=== PATIENT | male | born 1955 | race Caucasian/White ===

== ENCOUNTER → 2018-02-23 | Outpatient (CLI) | payer OTHER ==
--- NOTE | 2018-02-23 11:56 | EST ---
EXERCISE STRESS DATE OF SERVICE: 02/23/2018 AGE: 62 SEX: Male HT: 6'3" WT: 230 PROTOCOL: Erlin STAGE: V DURATION OF EXERCISE: 12-1/2 minutes HEART RATE REST: 57 BLOOD PRESSURE REST: 144/92 MAXIMUM HEART RATE ACHIEVED: 139 MAXIMUM BLOOD PRESSURE: 208/88 85% MPHR: 136 100% MPHR: 160 METS: 12.9 INDICATIONS: Shortness of breath CLINICAL INFORMATION: Baseline EKG revealed normal sinus rhythm without significant ST-T changes. Patient walked on standard Erlin protocol for 12-1/2 minutes achieved a maximal heart rate of 139 beats per minute which is slightly more than 85% of predicted maximal. He developed some fatigue and shortness of breath but did not have any angina. Rare isolated PVCs were noted. There was no evidence to suggest any ST-segment changes to indicate ischemia. By EKG criteria, this is a negative stress test with excellent exercise capacity. Rare PVCs were noted, which I do not think are significant. MMODL / IJN: [id number] /
== END | disposition home or self-care (01) ==
LOC: RADNMMAIN 10:29
PROVIDERS: ATTEND Family Medicine
DX: Z13.6 Encounter for screening for cardiovascular disorders (principal); Z82.49 Family history of ischemic heart disease and other diseases of the circulatory system
CPT/HCPCS: 93017

== ENCOUNTER → 2018-12-19 | Outpatient (CLI) | payer OTHER ==
--- NOTE | 2018-12-19 22:44 | MR ---
EXAMINATION TYPE: MR iac wo/w con DATE OF EXAM: 12/19/2018 COMPARISON: CT facial bones January 22, 2016 HISTORY: Lt sided hearing loss/ringing, dizziness TECHNIQUE: Multiplanar, multisequence images of the brain and brainstem is performed without and with IV contras t, utilizing 10 mL intravenous Gadavist . Acoustic nerve disorder protocol. FINDINGS: Diffusion weighted images demonstrate no evidence of a recent infarct or other diffusion ab normality. There is no worrisome extra-axial fluid collection. There is diffuse ventricular and sulc al prominence. There is occasional small focus of T2 hyperintensity scattered throughout the white ma tter bilaterally. Approximately 5 scattered lesions are seen. Midline structures demonstrate normal morphology. The craniocervical junction appears within normal limits. Normal vascular flow voids are present . The visualized sinuses are clear and the globes are intact. No suspicious fluid signal is seen in mastoid air cells bilaterally. The vestibulocochlear complexes are symmetric and felt within normal limits. There is no suspicious enhancing cerebellopontine angle mass identified bilaterally. IMPRESSION: 1. No suspicious findings seen to account for patient's symptoms of left-sided hearing loss and dizzi ness. 2. Background [id number] diffuse cerebral atrophy and mild to minimal chronic small vessel isch emic change is noted.
== END | disposition home or self-care (01) ==
LOC: RADMRIMAIN 16:36
PROVIDERS: ATTEND Otolaryngology
DX: I67.82 Cerebral ischemia (principal); G31.9 Degenerative disease of nervous system, unspecified
CPT/HCPCS: 70553; A9585

== ENCOUNTER → 2018-12-29 | Outpatient (CLI) | payer OTHER ==
[~2018-12-29] MED LIST: REGADENOSON 0.4 MG/5 ML SYRINGE IV ONE
--- NOTE | 2018-12-29 11:11 | NM ---
EXAMINATION TYPE: NM stress lexiscan cardiolite DATE OF EXAM: 12/29/2018 COMPARISON: NONE HISTORY: Chest pain TECHNIQUE: After the intravenous administration of 10.07 mCi Tc 99m Sestamibi - Cardiolite resting S PECT images acquired 45 minutes post injection. The patient received 0.4mg Lexiscan, 24.8 mCi Tc 99m Sestamibi - Stress images obtained [address] injection FINDINGS: Review of stress and rest SPECT images demonstrates no distinct perfusion abnormality. Gated analysi s shows normal wall motion with an estimated left ventricular ejection fraction of 59 %. IMPRESSION: No scintigraphic evidence for reversible ischemia.
--- NOTE | 2018-12-29 12:53 | EST ---
EXERCISE STRESS AGE: 63 SEX: M HT: 6'2" WT: 226 PROTOCOL: Lexiscan Cardiolite Stress Test HEART RATE REST: 49 BLOOD PRESSURE REST: 128/84 MAXIMUM HEART RATE ACHIEVED: 72 MAXIMUM BLOOD PRESSURE: 135/76 INDICATIONS: Abnormal EKG. CLINICAL INFORMATION: Lexiscan Cardiolite stress test for an abnormal ECG. Baseline heart rate 49 beats per minute. Baseline blood pressure 128/84 mmHg. Baseline 12-lead ECG shows sinus rhythm with a mildly prolonged VR interval with a narrow QRS with a consistent terminal sharp subtle deflection at the very end of the QRS in lead V1. PVCs noted at baseline as well as throughout the test. Frequent PVCs noted. These PVCs have left bundle branch block-like morphology with notching both in the onset, on the down slope as well as at the yusra of the QRS complex. There was no ECG evidence for ischemia noted, no nonsustained ventricular tachycardia noted. Nuclear portion will be reported separately. However, one should consider conditions of right ventricular cardiomyopathy given the morphology and notching on the PVCs which are originating from the outflow tract of the right ventricle as well as a very subtle sharp artifact at the end of the QRS in lead V1. MMODL / IJN: [id number] /
== END | disposition home or self-care (01) ==
LOC: RADNMMAIN 07:47
PROVIDERS: ATTEND Family Medicine
DX: R94.31 Abnormal electrocardiogram [ECG] [EKG] (principal)
CPT/HCPCS: 93017; 78452; A9500; J2785

== ENCOUNTER → 2018-12-29 | Outpatient (CLI) | payer OTHER | LOC: LABWHC1 11:04 | PROVIDERS: ATTEND Nurse Practitioner | DX: M79.609 Pain in unspecified limb (principal); R60.9 Edema, unspecified; Z86.718 Personal history of other venous thrombosis and embolism | CPT/HCPCS: 36415; 85379 ==

== ENCOUNTER 2019-09-17 08:36 | Day surgery (SDC) | payer OTHER ==
[2019-09-13 12:47] VITALS: BMI 28.8
[~2019-09-17 08:36] MED LIST changes: +LACTATED RINGERS 1,000 ML IV SCH; -REGADENOSON 0.4 MG/5 ML SYRINGE IV ONE
[2019-09-17 08:59] VITALS: RESP 16; TEMP 97.2
[2019-09-17] MEDS ORDERED: LIDOCAINE 1% (10MG/ML) FOR IV START INTRADERMA ONE (08:59)
[2019-09-17] MEDS ORDERED: GLYCOPYRROLATE 0.2 MG/ML 2 ML VIAL ONE (09:29)
[2019-09-17] MEDS ORDERED: MIDAZOLAM 2 MG/2 ML VIAL ONE (09:29)
[2019-09-17] MEDS ORDERED: fentaNYL (PF) 50 MCG/ML 2 ML AMP ONE (09:29)
[2019-09-17] MEDS ORDERED: PROPOFOL 10 MG/ML 20 ML VIAL IV ONE (09:29)
--- NOTE | 2019-09-17 09:58 | P.PCN ---
Date of Procedure: 09/17/19 Description of Procedure: BRIEF HISTORY: Patient is a 64-year-old male presenting for outpatient colonoscopy for screening for malignant neoplasm of the colon. Patient denies any change in bowel habits, blood per rectum or abdominal pain. No family history of colon cancer reported. He believes his last colonoscopy was approximately 15 years ago. PROCEDURE PERFORMED: Colonoscopy with polypectomy. PREOPERATIVE DIAGNOSIS: And screening for malignant neoplasm of the colon, patient was last colonoscopy was 15 years ago. ESTIMATED BLOOD LOSS: Minimal. IV sedation per Anesthesia. PROCEDURE: After informed consent was obtained, the patient, was brought into the endoscopy unit. IV sedation was administered by Anesthesia under continuous monitoring. Digital rectal examination was normal. Initially the Olympus CF-190 flexible video colonoscope was then inserted in the rectum, gradually advanced into the cecum without any difficulty. Careful examination was performed as the scope was gradually being withdrawn. Ileocecal valve and the appendiceal orifice were visualized and appeared normal. Prep was excellent. Mucosa of the cecum, ascending colon, transverse colon, descending colon, sigmoid colon, and rectum appeared normal. Diminutive 2 mm sigmoid polyp removed with cold forcep polypectomy. Diminutive 3 mm rectal polyp removed with cold forcep polypectomy. Retroflexion was performed in the rectum and no lesions were seen. The patient tolerated the procedure well. IMPRESSION: 2 diminutive polyps removed with cold forcep from the sigmoid and rectum. Otherwise, normal-appearing colon from rectum to cecum. RECOMMENDATIONS: Findings of this examination were discussed with the patient and his . Okay to resume diet. Okay to resume medications. Await pathology from polypectomies. Recommend repeat colonoscopy in 5 years pending pathology from polypectomies.
[2019-09-17 10:19] VITALS: BP 136/81; PULSE 54
== END 2019-09-17 10:50 | disposition home or self-care (01) ==
LOC: ORWHC2ENDO 08:36
PROVIDERS: ATTEND Internal Medicine
DX: Z12.11 Encounter for screening for malignant neoplasm of colon (principal); D12.8 Benign neoplasm of rectum; K63.5 Polyp of colon; H91.90 Unspecified hearing loss, unspecified ear; I49.3 Ventricular premature depolarization; Z86.718 Personal history of other venous thrombosis and embolism; Z88.5 Allergy status to narcotic agent; Z98.890 Other specified postprocedural states; Z79.1 Long term (current) use of non-steroidal anti-inflammatories (NSAID); Z79.899 Other long term (current) drug therapy
CPT/HCPCS: 88305; 45380; J2250; J3010; J2704

== ENCOUNTER → 2019-12-20 | Outpatient (CLI) | payer OTHER ==
[2019-12-20 09:43] LABS: Appearance,Urine Clear (Clear); Bilirubin,Urine Negative (Negative); Blood,Urine Negative (Negative); Color,Urine Yellow; Glucose,Urine (UA) Negative (Negative); Ketones,Urine Negative (Negative); Leukocyte Esterase,Urine Negative (Negative); Nitrite,Urine Negative (Negative); Protein,Urine Negative (Negative); Specific Gravity,Urine 1.017 (1.001-1.035); Urobilinogen,Urine <2.0 mg/dL (<2.0)
[2019-12-20 10:21] LABS: Basophils # (A) 0.1 k/uL (0-0.2); Basophils % (A) 1 %; Eosinophils # (A) 0.3 k/uL (0-0.7); Eosinophils % (A) 6 %; HCT 45.1 % (39.0-53.0); Lymphocytes # (A) 1.7 k/uL (1.0-4.8); Lymphocytes % (A) 33 %; MCH 31.1 pg (25.0-35.0); MCHC 33.2 g/dL (31.0-37.0); MCV 93.9 fL (80.0-100.0); Mean Platelet Volume 7.6; Monocytes # (A) 0.5 k/uL (0-1.0); Monocytes % (A) 9 %; Neutrophils # (A) 2.4 k/uL (1.3-7.7); Neutrophils % (A) 47 %; Platelet Count 205 k/uL (150-450); RDW 12.7 % (11.5-15.5); WBC 5.1 k/uL (3.8-10.6)
[2019-12-20 12:09] LABS: Erythrocyte Sedimentation Rate 7 mm/hr (0-15)
[2019-12-20 16:16] LABS: % Iron Saturation 37.81 (15.00-50.00); ALT 27 U/L (10-49); AST 27 U/L (14-35); African American GFR (CKD) 93.1 (60.0-200.0); Albumin/Globulin Ratio 1.95 (1.60-3.17); Alkaline Phosphatase 73 U/L (41-126); C Reactive Protein <0.4 mg/dL (0.0-0.8); Calcium 9.6 mg/dL (8.7-10.3); Carbon Dioxide 27.3 mmol/L (21.6-31.8); Chloride 107 mmol/L (96-109); Chol/HDL Ratio 3.61; Cholesterol 195 mg/dL (0-200); Globulin 2.2 g/dL (1.6-3.3); Glucose 101 mg/dL (70-110); Iron 107 ug/dL (65-175); LDL Cholesterol,Calculated 125.4 mg/dL (0.0-131.0); Magnesium 1.9 mg/dL (1.5-2.4); Non-African American GFR(CKD) 80.3 (60.0-200.0); Potassium 5.3 mmol/L (3.5-5.5); Sodium 145 mmol/L (135-145); Total Bilirubin 0.8 mg/dL (0.3-1.2); Total Iron Binding Capacity 283 ug/dL (228-460); Total Protein 6.5 g/dL (6.2-8.2)
[2019-12-20 16:17] LABS: Creatine Kinase 127 U/L (35-257)
[2019-12-25 00:46] LABS: Albumin, LC/MS/MS 4.3 g/dL (3.6-5.1); Testosterone, Free, LC/MS/MS 52.7 pg/mL (46.0-224.0)
== END | disposition home or self-care (01) ==
LOC: LABWHC1 09:07
PROVIDERS: ATTEND Family Medicine
DX: Z00.00 Encounter for general adult medical examination without abnormal findings (principal); M79.10 Myalgia, unspecified site; E55.9 Vitamin D deficiency, unspecified; G93.3 Postviral and related fatigue syndromes; F44.89 Other dissociative and conversion disorders; Z12.5 Encounter for screening for malignant neoplasm of prostate; Z13.220 Encounter for screening for lipoid disorders; Z13.0 Encounter for screening for diseases of the blood and blood-forming organs and certain disorders involving the immune mechanism; Z13.29 Encounter for screening for other suspected endocrine disorder; Z13.6 Encounter for screening for cardiovascular disorders; Z13.21 Encounter for screening for nutritional disorder; R70.0 Elevated erythrocyte sedimentation rate; M79.7 Fibromyalgia; E20.9 Hypoparathyroidism, unspecified; E53.8 Deficiency of other specified B group vitamins; R68.89 Other general symptoms and signs
CPT/HCPCS: 36415; 80053; 80061; 81003; 82040; 82140; 82306; 82550; 82607; 83540; 83550; 83735; 84153; 84270; 84403; 84443; 85025; 85652; 86140; 86141

== ENCOUNTER → 2020-02-09 | Outpatient (CLI) | payer OTHER ==
--- NOTE | 2020-02-10 20:17 | CT ---
EXAMINATION TYPE: CT brain wo con DATE OF EXAM: 02/09/2020 HISTORY: confusion, loss of balance, left sided facial numbness. CT DLP: 1144.7 mGycm. Automated Exposure Control for Dose Reduction was Utilized. TECHNIQUE: CT scan of the head is performed without contrast. COMPARISON: MRI IAC December 19, 2018 FINDINGS: There is no acute intracranial hemorrhage or midline shift identified. There is diffuse v entricular and sulcal prominence consistent with diffuse age-related cerebral atrophy. Palma-white mat ter differentiation fairly well-maintained on CT. Degree of ventricular prominence slightly out of pr oportion to degree of sulcal effacement and a normal pressure hydrocephalus is not excluded. The glob es are intact and the visualized sinuses are clear. IMPRESSION: No acute intracranial hemorrhage or midline shift. There is mild to moderate diffuse ce rebral atrophy. Cannot exclude underlying normal pressure hydrocephalus. Correlate clinically. No sig nificant change in ventricular size from prior MRI noted.
== END | disposition home or self-care (01) ==
LOC: RADCTMAIN 08:40
PROVIDERS: ATTEND Family Medicine
DX: G31.1 Senile degeneration of brain, not elsewhere classified (principal); F44.89 Other dissociative and conversion disorders
CPT/HCPCS: 70450

== ENCOUNTER → 2020-04-03 | Outpatient (CLI) | payer OTHER ==
[2020-04-03 10:34] LABS: Glucose 2 Hour 87 mg/dL
[2020-04-03 11:40] LABS: Protein, Total 6.5 g/dL (6.2-8.2)
[2020-04-04 11:45] LABS: Albumin 4.01 g/dL (3.80-4.90); Gamma Globulin 0.86 g/dL (0.70-1.50)
== END | disposition home or self-care (01) ==
LOC: LABWHC1 07:22
PROVIDERS: ATTEND Psychiatry & Neurology Neurology
DX: R41.3 Other amnesia (principal); R55 Syncope and collapse; Z86.73 Personal history of transient ischemic attack (TIA), and cerebral infarction without residual deficits
CPT/HCPCS: 36415; 82607; 82947; 82950; 83090; 84165; 84207

== ENCOUNTER → 2020-09-22 | Outpatient (CLI) | payer OTHER | END | disposition home or self-care (01) | LOC: LABWHC1 15:23 | PROVIDERS: ATTEND Internal Medicine Critical Care Medicine | DX: I49.9 Cardiac arrhythmia, unspecified (principal) | CPT/HCPCS: 36415; 82164 ==

== ENCOUNTER → 2020-10-10 | Outpatient (CLI) | payer OTHER ==
--- NOTE | 2020-10-11 07:55 | CT ---
EXAMINATION TYPE: CT chest w con DATE OF EXAM: 10/10/2020 COMPARISON: None HISTORY: Cardiac arrythmia. Pt noted a spot on heart wall as well. CT DLP: 364.20 mGycm Automated exposure control for dose reduction was used. CONTRAST: CT scan of the chest is performed with IV Contrast, patient injected with 100 mL of Isovue 300. FINDINGS: LUNGS: The lungs are grossly clear, there is no concerning parenchymal mass or nodule identified. T here is no pleural effusion or pneumothorax seen. The tracheobronchial tree is patent. MEDIASTINUM: There are no greater than 1 cm hilar or mediastinal lymph nodes. No pericardial effusi on is seen. Thoracic aorta is of normal caliber. There is evidence for cardiomegaly. UPPER ABDOMEN: 1.9 cm right adrenal nodule is nonspecific however may reflect adenoma. Left adrenal g land as visualized is unremarkable. Nonspecific left renal lesion may reflect a cyst measuring 1 cm. OTHER: No additional significant abnormality is seen. IMPRESSION: 1. Cardiomegaly. 2. Probable right adrenal adenoma.
== END | disposition home or self-care (01) ==
LOC: RADCTMAIN 18:32
PROVIDERS: ATTEND Internal Medicine Critical Care Medicine
DX: I51.7 Cardiomegaly (principal)
CPT/HCPCS: 71260; Q9967

== ENCOUNTER → 2020-11-28 | Outpatient (CLI) | payer OTHER ==
[2020-11-28 11:35] LABS: Basophils # (A) 0.05 X 10*3/uL (0.00-0.10); Basophils % (A) 0.9 %; HGB 14.3 g/dL (13.0-17.0); Lymphocytes # (A) 1.89 X 10*3/uL (0.90-5.00); MCH 30.8 pg (27.0-32.0); MCHC 33.3 g/dL (32.0-37.0); MCV 92.7 fL (80.0-97.0); Mean Platelet Volume 10.9 fL (9.5-12.2); Monocytes # (A) 0.71 X 10*3/uL (0.20-1.00); Monocytes % (A) 12.4 %; Neutrophils # (A) 2.65 X 10*3/uL (1.80-7.70); Neutrophils % (A) 46.2 %; Platelet Count 228 X 10*3/uL (140-440); RBC 4.64 X 10*6/uL (4.40-5.60); RDW 12.4 % (11.5-14.5); WBC 5.73 X 10*3/uL (4.50-10.00)
[2020-11-28 16:55] LABS: African American GFR (CKD) 92.4 (60.0-200.0); Albumin 4.3 g/dL (3.80-4.90); Albumin/Globulin Ratio 2.26 (1.60-3.17); Anion Gap 8.7 mmol/L (4.00-12.00); Calcium 9.2 mg/dL (8.7-10.3); Carbon Dioxide 25.3 mmol/L (21.6-31.8); Chol/HDL Ratio 2.34; Globulin 1.9 g/dL (1.6-3.3); LDL Cholesterol,Calculated 64.4 mg/dL (0.0-131.0); Non-African American GFR(CKD) 79.7 (60.0-200.0); Potassium 4.6 mmol/L (3.5-5.5); Total Bilirubin 1.1 mg/dL (0.2-1.2); Total Protein 6.2 g/dL (6.2-8.2); VLDL Calculation 10.6 mg/dL (5.00-40.00)
== END | disposition home or self-care (01) ==
LOC: LABWHC1 07:17
PROVIDERS: ATTEND Psychiatry & Neurology Neurology
DX: E56.9 Vitamin deficiency, unspecified (principal); G45.9 Transient cerebral ischemic attack, unspecified; R41.3 Other amnesia
CPT/HCPCS: 36415; 80053; 80061; 82306; 82607; 84207; 84443; 85025

== ENCOUNTER 2021-04-07 10:14 | Day surgery (SDC) | payer OTHER ==
[2021-04-03 12:26] VITALS: BMI 28.8
[~2021-04-07 10:14] MED LIST changes: -LACTATED RINGERS 1,000 ML IV SCH; +SODIUM CHLORIDE 0.9% 1,000 ML IV SCH
[2021-04-07 10:48] VITALS: BP 149/73; PULSE 56; RESP 18; TEMP 97.7
--- NOTE | 2021-04-07 15:54 | P.EPPROC ---
- EP Procedure Note Electrophysiology Procedure Note: Diagnosis Dizziness and presyncope and palpitations Twelve-lead EKG shows sinus rhythm with a mildly prolonged CO interval with ventricular trigeminy PVCs have a left bundle branch block morphology but with a fractionated downslope and early transition in V2 Tilt table test per protocol Blood pressure elevated 150 weight 2 mmHg Impression ventriculoperitoneal angles 70 per protocol blood pressure remained elevated heart rate remained stable in the 60s and 70s No symptoms No evidence for neurocardiogenic syncope No evidence for dysautonomia Impression Ventricular trigeminy under lead EKG elevated blood pressure readings during tilt table testing
== END 2021-04-07 14:42 | disposition home or self-care (01) ==
LOC: CATHEP 10:14
PROVIDERS: ATTEND Internal Medicine Clinical Cardiac Electrophysiology
DX: I44.7 Left bundle-branch block, unspecified (principal); R42 Dizziness and giddiness; R00.2 Palpitations
CPT/HCPCS: 93660

== ENCOUNTER 2021-06-11 08:11 | Day surgery (SDC) | payer OTHER ==
[2021-06-09 16:15] VITALS: BMI 28.8
[2021-06-11] MEDS: SODIUM CHLORIDE 0.9% 1,000 ML IV SCH (08:45)
[2021-06-11 09:13] LABS: Basophils # (A) 0.1 k/uL (0-0.2); Basophils % (A) 1 %; Eosinophils # (A) 0.4 k/uL (0-0.7); Eosinophils % (A) 7 %; HCT 45.5 % (39.0-53.0); HGB 15.8 gm/dL (13.0-17.5); Lymphocytes # (A) 1.8 k/uL (1.0-4.8); Lymphocytes % (A) 31 %; MCH 31.6 pg (25.0-35.0); MCHC 34.8 g/dL (31.0-37.0); MCV 90.7 fL (80.0-100.0); Mean Platelet Volume 7.2; Monocytes # (A) 0.5 k/uL (0-1.0); Monocytes % (A) 8 %; Neutrophils % (A) 50 %; Platelet Count 237 k/uL (150-450); RBC 5.01 m/uL (4.30-5.90); RDW 12.6 % (11.5-15.5)
[2021-06-11 09:19] LABS: African American GFR (CKD) >90 (>60 ml/min/1.73 sqM); Anion Gap 7 mmol/L; Blood Urea Nitrogen 20 mg/dL (9-20); Calcium 9.3 mg/dL (8.4-10.2); Carbon Dioxide 28 mmol/L (22-30); Chloride 104 mmol/L (98-107); Glucose 90 mg/dL (74-99); Non-African American GFR(CKD) >90 (>60 ml/min/1.73 sqM); Potassium 4.3 mmol/L (3.5-5.1); Sodium 139 mmol/L (137-145)
[2021-06-11] MEDS ORDERED: LIDOCAINE 1% INJ 10MG/ML (20 ML MDV) ONE (09:58)
[2021-06-11] MEDS ORDERED: PROPOFOL 10 MG/ML 20 ML VIAL IV ONE (10:05)
[2021-06-11] MEDS ORDERED: HYDROmorphone (PF) 1 MG/ML ONE (10:05)
[2021-06-11] MEDS ORDERED: ISOPROTERENOL 250 MCG/1.25 ML SYR IV ONE (10:05)
[2021-06-11] MEDS ORDERED: MIDAZOLAM 2 MG/2 ML VIAL ONE (10:05)
[2021-06-11] MEDS ORDERED: fentaNYL (PF) 50 MCG/ML 2 ML AMP ONE (10:05)
[2021-06-11] MEDS ORDERED: LIDOCAINE 1% INJ 10MG/ML (20 ML MDV) SQ ONE (10:46)
[2021-06-11 11:42] LABS: T4, Free (Free Thyroxine) 0.91 ng/dL (0.78-2.19)
[2021-06-11] MEDS ORDERED: HEPARIN SODIUM (1,000 UNIT/ML) 1,000 UNIT in SODIUM CHLORIDE 0.9% 1,000 ML IRRIGATION ONE (11:45)
[2021-06-11] MEDS ORDERED: ACETAMINOPHEN IV (For NPO) 1,000 MG in EMPTY BAG 1 BAG IVPB ONE (13:00)
--- NOTE | 2021-06-11 13:08 | P.HPCAR ---
History of Present Illness This is Dr. Kim dictating an H/P on this patient The patient was interviewed and examined IMPRESSION / ASSESSMENT: Frequent PVCs ventricular couplets and triplets, pCO2 28% mostly 1 single morphology Nonsustained ventricular tachycardia Nonsustained paroxysmal atrial tachycardia history of sick sinus syndrome History of dizzy spells with a negative tilt table test Questionable history of TIA in the past Prolonged ME interval at baseline Hypothyroidism with a TSH of 7.2 PLAN: Proceed with EP study and ablation of the PVCs to avoid antiarrhythmic drug therapy HPI Patient complains of fluttering in the chest He also has recurrent episodes of dizzy spells and he had one this morning We have documented nonsustained ventricular tachycardia and very frequent PVCs ROS: No fever chills or rigors, no cough, phlegm or expectoration, no nausea, vomiting or diarrhea, no hematuria, dysuria, no musculoskeletal complaints, no strokes or seizures, no skin lesions. EXAMINATION: 98.9F pulse rate in the 50s Blood pressure 163/87 mmHg Breath sounds are clear no rhonchi no crackles Heart sounds S1 and S2 normal no murmurs without rub Extent is warm no edema Abdomen soft nontender REVIEW OF LABS, ECG & MEDICAL DATA Hemoglobin 15.8 Sodium 139 potassium 4.3 BUN 20 creatinine 0.8 TSH 7.2 Physical Exam Vitals: Vital Signs Temp Pulse Resp BP Pulse Ox 06/11/21 08:56 98.9 F 56 L 18 163/87 99 Intake and Output 06/10/21 06/11/21 06/11/21 22:59 06:59 14:59 Intake Total 225 Output Total 425 Balance -200 Intake: IV 225 Output: Urine 425 Other: Weight 103.6 kg Past Medical History Past Medical History: Deep Vein Thrombosis (DVT), Hearing Disorder / Deafness, Vascular Disorder Additional Past Medical History / Comment(s): See Dr Kim's H&P. Frequent PVC's, hx DVT to leg X2-1998 & 2008, hard of hearing in left ear, varicose veins. History of Any Multi-Drug Resistant Organisms: None Reported Additional Past Surgical History / Comment(s): Surgery to remove blood clot from iliac & saphenous vein, ruptured biceps tendon repairs right arm, tilt table test. Past Anesthesia/Blood Transfusion Reactions: No Reported Reaction Past Psychological History: No Psychological Hx Reported Smoking Status: Never smoker Past Alcohol Use History: None Reported Past Drug Use History: None Reported - Past Family History Father Family Medical History: Cancer Sister(s) Family Medical History: Cancer Physical Examination Vital Signs Temp Pulse Resp BP Pulse Ox 06/11/21 08:56 98.9 F 56 L 18 163/87 99 Intake and Output 06/10/21 06/11/21 06/11/21 22:59 06:59 14:59 Intake Total 225 Output Total 425 Balance -200 Intake: IV 225 Output: Urine 425 Other: Weight 103.6 kg Results 06/11/21 08:45 06/11/21 08:45 CBC 06/11/21 Range/Units 08:45 WBC 6.0 (3.8-10.6) k/uL RBC 5.01 (4.30-5.90) m/uL Hgb 15.8 (13.0-17.5) gm/dL Hct 45.5 (39.0-53.0) % Plt Count 237 (150-450) k/uL Comprehensive Metabolic Panel 06/11/21 Range/Units 08:45 Sodium 139 (137-145) mmol/L Potassium 4.3 (3.5-5.1) mmol/L Chloride 104 (98-107) mmol/L Carbon Dioxide 28 (22-30) mmol/L BUN 20 (9-20) mg/dL Creatinine 0.82 (0.66-1.25) mg/dL Glucose 90 (74-99) mg/dL Calcium 9.3 (8.4-10.2) mg/dL Current Medications Generic Name Dose Route Start Last Admin Trade Name Freq PRN Reason Stop Dose Admin Acetaminophen 650 mg 06/11/21 13:00 Acetaminophen Tab 325 Mg Tab PO 07/11/21 13:01 Q6HR PRN Mild Pain Duloxetine HCl 60 mg 06/11/21 21:00 Duloxetine Hcl 60 Mg Capsule.Dr PO 07/11/21 21:01 HS DIGNA Flecainide Acetate 50 mg 06/11/21 13:00 Flecainide 50 Mg Tab PO 07/11/21 13:01 Q12HR DIGNA Fluticasone Propionate 2 spray 06/12/21 09:00 Fluticasone 50mcg/[place] Nasal 16gm EA NOSTRIL 07/12/21 09:01 DAILY DIGNA Sodium Chloride 1,000 mls @ 20 mls/hr 06/11/21 06:31 06/11/21 08:45 Saline 0.9% IV 07/11/21 06:32 100 mls .Q24H DIGNA Administration Acetaminophen 1,000 mg/ IV 100 mls @ 400 mls/hr 06/11/21 13:00 Solution IVPB 06/11/21 13:14 ONCE ONE Non-Formulary Medication 81 mg 06/12/21 09:00 Aspirin [Adult Low Dose Aspirin Ec] PO 07/12/21 09:01 DAILY DIGNA Non-Formulary Medication 10 mg 06/12/21 09:00 Rosuvastatin PO 07/12/21 09:01 DAILY DIGNA Sodium Chloride 12 ml 06/11/21 21:00 Sodium Chloride 0.9% Flush 10 Ml Syringe IV 07/11/21 21:01 Q12HR DIGNA Intake and Output 06/10/21 06/11/21 06/11/21 22:59 06:59 14:59 Intake Total 225 Output Total 425 Balance -200 Intake: IV 225 Output: Urine 425 Other: Weight 103.6 kg Patient Weight 06/12/21 06:59 Weight 103.6 kg 06/11/21 08:45 06/11/21 08:45
[2021-06-11] MEDS: FLECAINIDE 50 MG TAB PO SCH ×2 (13:45→19:44)
--- NOTE | 2021-06-11 16:03 | CE ---
CARDIAC ELECTROPHYSIOLOGY REPORT This is a 66-year-old male patient with frequent PVCs, ventricular couplets, triplets, and nonsustained ventricular tachycardia as well as exercise-induced nonsustained VT. His PVC burden is 28%. He has mild sick sinus syndrome and he was brought in for an EP study and ablation because of the high PVC burden and symptoms of palpitations associated with dizziness. His tilt-table test was normal. His LV function so far has been normal. The patient was brought to the EP lab in a fasting state. Written informed consent was obtained prior to the procedure. The right and left groins were prepped and draped as per protocol and venous sheaths were placed in the right and left femoral veins. Via these, diagnostic catheters were placed in the right heart. The catheters were placed in the high right atrium, right ventricle, and His bundle area. Later mapping and ablation catheters were placed in the right ventricle for mapping of the PVCs. Sinus cycle length 1146 milliseconds, MD interval 196 milliseconds, QRS 112 milliseconds, and QT 464 milliseconds. AH interval 103 milliseconds, HV interval 28 milliseconds. Sinus node recovery times at 600, 500 and 400 milliseconds were 1496, 1130, and 1310 milliseconds. Corrected sinus node recovery times were within normal limits. AV node Wenckebach block 390 milliseconds. VA Wenckebach block greater than 600 milliseconds. During atrial pacing, intermittent right bundle branch block aberrancy was noted. Ventricular stimulation protocol was followed. Burst stimulation was performed. Ventricular extrastimulation up to triple extrastimuli was performed. No PVCs, nonsustained ventricular tachycardia or nonsustained VT was induced. Isuprel was started. AV node Wenckebach block improved to 260 milliseconds. On Isuprel 2 mcg, he started experiencing frequent PVCs from the right ventricle. These PVCs had a left bundle branch block morphology with notching on the down slope. Lead III was predominantly negative, and leads III and aVF were not very tall QRSs either. Lead I was positive. Transition was in V3/V4. Mapping and ablation catheters were placed in the right ventricle. Three-D electroanatomic mapping was performed. The PVC was carefully mapped. The PVC focus was right on the His bundle. Since the PVC was originating in the His bundle area, there was a high risk of AV block with RF ablation. Therefore RF ablation was not performed and is not recommended. All catheters were then removed at the end of the procedure. Isuprel was stopped and the venous access sites were closed with Vascade. RESULT: 1. Diagnostic EP study revealing MD interval at the upper limits of normal. 2. AH interval of 103 milliseconds, HV interval of 30 milliseconds. 3. Right ventricular PVCs that were mapped to the AV node/His bundle area. 4. Ablation contraindicated at this time. PLAN: Start low-dose flecainide, either 25 or 50 mg p.o. twice daily. The patient also is mildly hypothyroid, with a TSH of 7.2. I would recommend starting Synthroid. MMODL / IJN: [id number] /
--- NOTE | 2021-06-11 16:06 | LTR ---
June 11, 2021 To: Dr. Thomas RE: Rafael Patiño (59) Dear Dr. Thomas, Mr. Patiño underwent a diagnostic EP study for mapping of the PVCs that was originated from the right ventricle. He has a 28% PVC burden with frequent ventricular couplets, triplets and nonsustained ventricular tachycardia, some of which are exercise-induced. He does complain of dizzy spells associated with palpitations, and his tilt-table test was negative. We performed a detailed mapping of the PVCs. Unfortunately, the PVCs mapped exactly to the His bundle region, and therefore RF ablation was contraindicated at this point and was not performed because of a risk of AV block, which is virtually 100% at this site. I have elected to treat him with low-dose flecainide. I did check his TSH, and his TSH is 7.2. He is mildly hypothyroid. This corresponds to his EP study, which shows very mildly abnormal sinus node and AV node function at baseline, which I have also noticed as an outpatient. He would benefit from low-dose levothyroxine. Thank you for entrusting me with the care of this patient. Warm regards. Sincerely, Alan Kim M.D. RAMSEY / MACK: [id number] /
[2021-06-11] MEDS: ACETAMINOPHEN TAB 325 MG TAB PO PRN (16:22)
[2021-06-11 20:34] LABS: Chol/HDL Ratio 2.49 Ratio; VLDL Calculation 9.66 mg/dL (5.00-40.00)
[2021-06-11] MEDS ORDERED: DULoxetine HCL 60 MG CAPSULE.DR PO SCH (21:00)
[2021-06-12] MEDS: SODIUM CHLORIDE 0.9% 1,000 ML IV SCH (01:12)
[2021-06-12 07:45] VITALS: BP 189/90; PULSE 67; RESP 18; TEMP 97.5
[2021-06-12] MEDS: FLECAINIDE 50 MG TAB PO SCH (08:25)
[2021-06-12] MEDS: ACETAMINOPHEN TAB 325 MG TAB PO PRN (08:31)
[2021-06-12] MEDS ORDERED: ASPIRIN 81 MG PO SCH (09:00)
[2021-06-12] MEDS ORDERED: FLUTICASONE 50MCG/SPRAY NASAL 16GM EA NOSTRIL SCH (09:00)
[2021-06-12] MEDS ORDERED: ATORVASTATIN 20 MG TAB PO SCH (09:00)
--- NOTE | 2021-06-12 09:49 | P.DS ---
Providers Attending physician: Alan Kim Primary care physician: Fermin Thomas MD Hospital Course: Patient is doing well No chest discomfort dizziness lightheadedness or palpitations He has occasional PVCs I started him on flecainide His twelve-lead EKG shows sinus mechanism normal ST segments normal QRS and an occasional PVC which is his clinical PVC On examination heart sounds are normal Groins of healed well no hematoma Lungs are clear Blood pressure 166/92 mmHg pulse rate in the 60s afebrile Impression PVCs from the His bundle area in the right ventricle Radiofrequency ablation contraindicated, 100% risk of AV block at this location Hypothyroidism TSH 7.2 Elevated blood pressure readings in the hospital, we'll reevaluate as an outpatient Suggest Flecainide 50 mg twice daily Continue Crestor Continue baby aspirin Home blood pressure monitoring Reevaluate need for antihypertensive therapy Sent a letter to Dr. gastelum regarding hypothyroidism treatment Patient does have mild Sick Sinus Syndrome and this may be related to his hypothyroidism I will see them again in a few weeks A 20-year-old to monitor will be ordered prior to that Plan - Discharge Summary Discharge Rx Participant: No New Discharge Prescriptions: New Flecainide [Tambocor] 50 mg PO Q12HR #180 tablet No Action Fluticasone Nasal Willis [Flonase Nasal Willis] 2 spr EA NOSTRIL DAILY DULoxetine HCL [Cymbalta] 60 mg PO HS Aspirin [Adult Low Dose Aspirin EC] 81 mg PO DAILY Rosuvastatin [Crestor] 10 mg PO DAILY Ergocalciferol [Vitamin D2 (1250 Mcg = 40752 Iu)] 1,250 mcg PO CHEW Discharge Medication List Fluticasone Nasal Willis [Flonase Nasal Willis] 2 spr EA NOSTRIL DAILY 09/13/19 [History] Aspirin [Adult Low Dose Aspirin EC] 81 mg PO DAILY 04/03/21 [History] DULoxetine HCL [Cymbalta] 60 mg PO HS 04/03/21 [History] Rosuvastatin [Crestor] 10 mg PO DAILY 04/03/21 [History] Ergocalciferol [Vitamin D2 (1250 Mcg = 68125 Iu)] 1,250 mcg PO CHEW 06/09/21 [History] Flecainide [Tambocor] 50 mg PO Q12HR #180 tablet 06/11/21 [Rx] Follow up Appointment(s)/Referral(s): Alan Kim MD [STAFF PHYSICIAN] - 2 Weeks (Follow-up Dr. Kim/Trina Morales in 2 weeks) Activity/Diet/Wound Care/Special Instructions: Post EP study - Ablation instructions 1. Keep access sites dry for 2 days. 2. No heavy lifting or straining for 2 days. 3. Avoid bending the hips repeatedly for 2 days. 4. You may go up and down stairs slowly Call if the following is noted 1. Bleeding, increasing swelling or pain at the access sites. 2. Increasing chest discomfort, especially upon taking a deep breath. 3. Increasing shortness of breath, at rest or with exertion. 4. Undue cough / phlegm 5. Difficulty or pain while swallowing. 6. Pain or change in color in the extremities. 7. Fever, chills, rigors. 8. Increasing headache or neurologic symptoms. 9. Dizziness, fainting, palpitations New medication Flecainide 50 mg twice daily Continue all other medications as before Discharge Disposition: HOME SELF-CARE
== END 2021-06-12 11:04 | disposition home or self-care (01) ==
LOC: CATHEP 08:11 → 6NMEDSUR 12:38 → CATHEP 06-12 11:04
PROVIDERS: ATTEND Internal Medicine Clinical Cardiac Electrophysiology
DX: I47.2 Ventricular tachycardia (principal); I49.3 Ventricular premature depolarization; I49.5 Sick sinus syndrome; Z20.822 Contact with and (suspected) exposure to COVID-19; I44.7 Left bundle-branch block, unspecified; E03.9 Hypothyroidism, unspecified; Z88.5 Allergy status to narcotic agent; Z79.899 Other long term (current) drug therapy; Z86.73 Personal history of transient ischemic attack (TIA), and cerebral infarction without residual deficits; Z86.718 Personal history of other venous thrombosis and embolism; H91.90 Unspecified hearing loss, unspecified ear
CPT/HCPCS: 93623; 93620; 93613; 84439; 80061; 80048; 84443; 85025; 87635; C1894; C1769 ×2; C1760; C1730 ×3; C1732; J2250; J2001; J3010; J1644; J1170; J2704

== ENCOUNTER → 2022-01-21 | Outpatient (CLI) | payer OTHER ==
[2022-01-21 14:53] LABS: Chol/HDL Ratio 2.59 Ratio; LDL Cholesterol,Calculated 70.2 mg/dL (0.0-131.0); VLDL Calculation 17.52 mg/dL (5.00-40.00)
== END | disposition home or self-care (01) ==
LOC: LABWHC1 08:22
PROVIDERS: ATTEND Internal Medicine Clinical Cardiac Electrophysiology
DX: Z00.00 Encounter for general adult medical examination without abnormal findings (principal)
CPT/HCPCS: 36415; 80061

== ENCOUNTER → 2022-08-27 | Outpatient (CLI) | payer MEDICARE ==
--- NOTE | 2022-08-27 14:52 | NM ---
EXAMINATION TYPE: NM DatScan Brain SPECT DATE OF EXAM: 08/27/2022 COMPARISON: NONE HISTORY: Dimension TECHNIQUE: 10 drops of Lugol's solution was administered 1 hour prior to injection as a thyroid bloc kiana agent. After the administration of 4.74 mCi I-123 Ioflupane DaTscan. Images obtained 3 hours p ost injection. SPECT images of the brain were acquired with axial and coronal reconstructions. FINDINGS: The axial SPECT images demonstrate normal background activity. Accounting for head tilt, t here appears to be slight asymmetrically blunted comma-shaped appearance of the right corpus striatum . IMPRESSION: Slightly blunted striatal activity on the left may indicate early changes of idiopathic P arkinson's disease or Parkinsonian syndrome.
== END | disposition home or self-care (01) ==
LOC: RADNMMAIN 09:55
PROVIDERS: ATTEND Psychiatry & Neurology Neurology
DX: F03.90 Unspecified dementia, unspecified severity, without behavioral disturbance, psychotic disturbance, mood disturbance, and anxiety (principal)
CPT/HCPCS: 78803; A9584

== ENCOUNTER → 2023-12-08 | Outpatient (CLI) | payer MEDICARE ==
[2023-12-08 18:54] LABS: Basophils # (A) 0.04 X 10*3/uL (0.00-0.10); Basophils % (A) 0.7 %; Eosinophils # (A) 0.41 X 10*3/uL (0.04-0.35); HCT 43.5 % (39.6-50.0); HGB 14.4 g/dL (13.0-17.0); Lymphocytes % (A) 30.8 %; MCH 31.4 pg (27.0-32.0); MCHC 33.1 g/dL (32.0-37.0); MCV 94.8 FL (80.0-97.0); Mean Platelet Volume 10.7 FL (9.5-12.2); Monocytes # (A) 0.57 X 10*3/uL (0.20-1.00); Monocytes % (A) 9.8 %; NRBC Per 100 WBC 0 X 10*3/uL (0.00-0.01); Neutrophils # (A) 2.98 X 10*3/uL (1.80-7.70); Platelet Count 215 X 10*3/uL (140-440); RBC 4.59 X 10*6/uL (4.40-5.60); RDW 12.8 % (11.5-14.5); WBC 5.84 X 10*3/uL (4.50-10.00)
[2023-12-08 19:05] LABS: ALT 32 U/L (10-49); AST 35 U/L (14-35); Albumin 4.4 g/dL (3.8-4.9); Alkaline Phosphatase 96 U/L (41-126); Blood Urea Nitrogen 20.4 mg/dL (9.0-27.0); Calcium 9.6 mg/dL (8.7-10.3); Carbon Dioxide 27.6 mmol/L (21.6-31.8); Chloride 103 mmol/L (96-109); Globulin 2.1 g/dL (1.6-3.3); Glucose 106 mg/dL (70-110); Potassium 4.6 mmol/L (3.5-5.5); Sodium 141 mmol/L (135-145); Total Bilirubin 0.4 mg/dL (0.3-1.2); Total Protein 6.5 g/dL (6.2-8.2)
[2023-12-08 19:13] LABS: Hepatitis C IgG Antibody Nonreactive (Nonreactive)
== END | disposition home or self-care (01) ==
LOC: LABWHC1 14:45
PROVIDERS: ATTEND Nurse Practitioner Family
DX: L30.9 Dermatitis, unspecified (principal)
CPT/HCPCS: 36415; 80053; 85025; 86038; 86803; 87521; 87522